=== PATIENT | female | born 1980 | race Two or more races ===

== ENCOUNTER 2019-09-10 09:58 | Emergency (ER) | payer OTHER ==
[2019-09-10 10:07] VITALS: BMI 32.9
[2019-09-10] MEDS ORDERED: ACETAMINOPHEN 1000 MG/100 ML VIAL (NON FORMULARY) IVPB ONE (10:35)
[2019-09-10] MEDS ORDERED: KETOROLAC TROMETHAMINE 30 MG/1 ML VIAL IVPUSH ONE (10:45)
--- NOTE | 2019-09-10 10:46 | PDOC ---
History of Present Illness - General Chief Complaint: Blood Pressure Problem Stated Complaint: HYPERTENSION Time Seen by Provider: 09/10/19 10:33 History Source: Patient Exam Limitations: No Limitations - History of Present Illness Initial Comments: HPI: 39 y/o female presenting to [facility] ER complaining of diffuse posterior headache for the past four days. No nausea/vomiting, change with position, lights, or sounds. Delivered baby via at 23 weeks gestation on 09 Aug 2019 at [facility]. Returned to that hospital on the July for similar headache. Diagnosed with Pre-E. Admitted, treated with magnesium, then discharged on Nifedipine. Taking the antihypertensive as prescribed. Believes this headache feels similar to that headache. Denies h/o migraines. OBGYN Hx: - G 4, T 2, P 0, A 2, L 2 - Two pregnancies complicated by Pre-E - never had a seizure Medical Hx: - HTN Surgical Hx: - Review of Systems: In addition to that documented in the HPI above, the additional ROS was obtained : Constitutional- Denies fevers or chills Head- Denies vision changes ENMT- Denies sore throat CV- Denies chest pain Resp- Denies SOB GI- Denies vomiting or diarrhea - Denies painful urination, hematuria, or increased urinary frequency MSK- Denies recent trauma Skin- Denies new rashes Neuro- Denies new numbness or tingling or weakness Endocrine- Denies polyuria Heme- Denies bleeding or bruising Physical Examination: Vital signs and nursing notes reviewed. Constitutional- Well-developed, well-nourished adult female in no acute distress but mild obvious discomfort. Found semi-fowlers on hospital bed. Answered all questions appropriately and completely. Head- Normocephalic. No obvious external signs of trauma. Pain not reproducible with palpation of occiput or cervical spine. Eyes- PERRL. EOMI. Sclerae white. Conjunctiva moist and not injected. Ears- Hearing grossly intact. Nose- No nasal discharge. Neck- Supple, trachea is midline. No JVD. Cardiovascular / Chest- Regular rate and regular rhythm. No murmur, rubs, clicks , or gallops. Peripheral pulses- radial pulses full. 1+ pretibial edema bilaterally. Respiratory- Breathing unlabored. Equal chest rise and fall. Clear to auscultation bilaterally. No stridor, no wheezing, no rhonchi. Gastrointestinal- Reports discomfort in all four quadrants. No rebound or guarding. No hepatosplenomegaly. No pulsatile masses. LTV scar well appearing; dry, intact. No fluctuance or induration. Neuro- Alert and oriented x4. Moving all four extremities spontaneously. No facial asymmetry. No slurred speech. Skin- Warm, dry, and intact. - No R or L CVA tenderness. Psych- Affect- appropriate. Mood- normal. Speech was non-labored, non- pressured. MDM: 39 y/o female presenting with headache in setting of recent pre-eclampsia diagnosis. Afebrile. Vitals unremarkable for hypotension or tachycardia. Physical exam as described above. Low suspicion for pre-e given normal BP, but will obtain UA and labs to further evaluate as pt believes the symptoms are similar. Low suspicion for ICH but will evaluate given recent . Suspect possible tension headache vs migraine. Ordered Toradol and Reglan for symptom relief. Reviewed laboratory data. No transaminitis. Platelets within normal limits. UA unremarkable for protein. Urine Protein/Cr essentially 0. CTH unremarkable for ICH. 10 Sep 2019 13:06 PM Pt reassessed. Reports the headache feels a little better but has not resolved. 10 Sep 2019 15:24 PM Pt reassessed. Reports she continues to feel better. BP rechecked. Not significantly elevated. Given unremarkable head CT and labs remarkable only for mild proteinuria (but low ratio), will discharge pt home with close OB follow up. Encouraged pt to call OB on Thursday and request urgent appointment. Jas Samayoa M.D., PGY2 Emergency Medicine Resident Past History - Past Medical History Allergies/Adverse Reactions: Allergies Allergy/AdvReac Type Severity Reaction Status Date / Time No Known Allergies Allergy Verified 09/10/19 10:07 Home Medications: Ambulatory Orders Nifedipine ER [Procardia Xl -] 30 mg PO DAILY 09/10/19 COPD: No - Immunization History Immunization Up to Date: No - Psycho Social/Smoking Cessation Hx Smoking History: Never smoked Have you smoked in the past 12 months: No Information on smoking cessation initiated: No Hx Alcohol Use: No Drug/Substance Use Hx: No *Physical Exam - Vital Signs Last Vital Signs Temp Pulse Resp BP Pulse Ox 98.4 F 95 H 18 147/89 100 09/10/19 10:04 09/10/19 10:04 09/10/19 10:04 09/10/19 10:04 09/10/19 10:04 Vital Signs - Vital Signs #1 Time: 15:22 Blood Pressure: 141/84 BP Location: Left Arm Blood Pressure Position: Supine Pulse Rate: 75 Respiratory Rate: 16 O2 Sat by Pulse Oximetry (%): 99 Oxygen Delivery Method: Room Air ED Treatment Course - LABORATORY CBC & Chemistry Diagram: 09/10/19 10:50 09/10/19 10:50 Discharge - Discharge Information Problems reviewed: Yes Clinical Impression/Diagnosis: examination following delivery Headache Qualifiers: Headache type: unspecified Headache chronicity pattern: acute headache Intractability: not intractable Qualified Code(s): R51 - Headache Condition: Improved Disposition: HOME - Admission No - Follow up/Referral Referrals: Melita Beyer MD [Primary Care Provider] - Jose Miguel Harden MD [Staff Physician] - - Patient Discharge Instructions Patient Printed Discharge Instructions: DI for Headache Additional Instructions: You were seen today for a headache. Your blood pressure was mildly elevated. Your labs showed a small amount of protein in your urine. Your head CT was normal. I discussed your symptoms and results with the OBGYN agronomy advisor, Dr. Harden, who also felt this was not likely to be pre-eclampsia. You can take over the counter Tylenol or Advil as needed for pain. Take as directed on the package insert. Do not exceed the recommended dosage. If your headache gets worse and does not go away, take your blood pressure at home, then re-measure it four hours later. If the BP is above 150/90 both times , then go back to the hospital. You can return to [place] but it might be better for you to go to [facility] where you delivered. Follow up with your OBGYN in the next 2-3 days. You will need to call to make an appointment. A copy of todays results are attached to this packet. Take it to the appointment so your doctor can review them. Go to the nearest emergency department if your condition worsens or you feel like you need additional emergency evaluation. Print Language: GREEK - Post Discharge Activity Work/Back to School Note: Back to Work
[2019-09-10] MEDS ORDERED: KETOROLAC TROMETHAMINE 30 MG/1 ML VIAL ONE (11:03)
[2019-09-10 11:11] LABS: PH,URINE 6.5 (5.0-8.0); URINE APPEARANCE CLEAR; URINE BILIRUBIN NEGATIVE (NEGATIVE); URINE COLOR YELLOW; URINE GLUCOSE (UA) NEGATIVE (NEGATIVE); URINE KETONE NEGATIVE (NEGATIVE); URINE LEUK ESTERASE NEGATIVE (NEGATIVE); URINE NITRITE NEGATIVE (NEGATIVE); URINE PROTEIN NEGATIVE (NEGATIVE)
[2019-09-10 11:14] LABS: BASO % 0.6 % (0-2.0); HEMATOCRIT 40.1 % (32.4-45.2); HEMOGLOBIN 13.4 GM/dL (10.7-15.3); LYMPH % 34.7 % (8-40); MCH 28.2 pg (25.7-33.7); MCHC 33.3 g/dl (32.0-36.0); MEAN CELL VOLUME 84.6 fl (80-96); MEAN PLT VOLUME 8.7 fl (7.5-11.1); MONO % 6.3 % (3.8-10.2); NEUT % 57.4 % (42.8-82.8); PLATELET COUNT 207 K/MM3 (134-434); RBC 4.74 M/mm3 (3.60-5.2); RDW 13.8 % (11.6-15.6); WHITE BLOOD COUNT 5.1 K/mm3 (4.0-10.0)
--- NOTE | 2019-09-10 11:55 | PDOC ---
Documentation entered by Kirby Strong SCRIBE, acting as scribe for Marcella Rey MD. Marcella Rey MD: This documentation has been prepared by the Tae calhoun Nirvannie, SCRIBE, under my direction and personally reviewed by me in its entirety. I confirm that the documentation accurately reflects all work, treatment, procedures, and medical decision making performed by me. Attending Attestation - Resident Resident Name: Jas Samayoa - ED Attending Attestation I have performed the following: I have examined & evaluated the patient, The case was reviewed & discussed with the resident, I agree w/resident's findings & plan, Exceptions are as noted - HPI HPI: 09/10/19 11:35 The patient is a 39 year old female, with a significant past medical history of HTN, who presents to the emergency department with 4 days of a headache. Patient describes her headache as localized to the posterior head. She notes a similar symptoms last month (08/15) shortly after giving (08/09) at which time she was admitted, treated with magnesium, and prescribed Nifedipine. Patient notes her symptoms are similar to the headache for which she was admitted, prompting her arrival to the ED. She denies any focal weakness, change in strength/sensation, lightheadedness, or dizziness. She denies any visionary changes, photophobia, or phonophobia. She denies recent chest pain or shortness of breath. Allergies: NKDA Primary Care Physician: Dr. Beyer - Physicial Exam PE: GENERAL: Awake, alert, and fully oriented, in no acute distress HEAD: No signs of trauma EYES: PERRLA, EOMI, sclera anicteric, conjunctiva clear ENT: Auricles normal inspection, hearing grossly normal, nares patent, oropharynx clear without exudates. Moist mucosa NECK: Normal ROM, supple, no lymphadenopathy, JVD, or masses LUNGS: Breath sounds equal, clear to auscultation bilaterally. No wheezes, and no crackles HEART: Regular rate and rhythm, normal S1 and S2, no murmurs, rubs or gallops ABDOMEN: Soft, nontender, normoactive bowel sounds. No guarding, no rebound. No masses EXTREMITIES: Normal range of motion, 1+ pitting to ankles B/L. No clubbing or cyanosis. No cords, erythema, or tenderness NEUROLOGICAL: Cranial nerves II through XII grossly intact. Normal speech, normal gait. Motor and sensation intact SKIN: Warm, dry, normal turgor, no rashes or lesions noted. - Medical Decision Making Pt with history of preeclampsia, prior admission for mag shortly after delivery. Presents with posterior headache, mild swelling to BLE. Will obtain CBC, CMP, mag level, and UA.
[2019-09-10 12:34] LABS: ALBUMIN 3.7 g/dl (3.4-5.0); BILIRUBIN,TOTAL 0.3 mg/dL (0.2-1); BLOOD UREA NITROGEN 11.3 mg/dL (7-18); CALCIUM 9.3 mg/dL (8.5-10.1); CREATININE 0.7 mg/dL (0.55-1.3); MAGNESIUM 2.3 mg/dL (1.8-2.4); POTASSIUM 3.6 mmol/L (3.5-5.1); TOT PROT 7.4 g/dl (6.4-8.2)
[2019-09-10] MEDS ORDERED: METOCLOPRAMIDE HCL INJECTION 10 MG/2 ML VIAL IVPUSH ONE (13:10)
[2019-09-10] MEDS ORDERED: METOCLOPRAMIDE HCL INJECTION 10 MG/2 ML VIAL ONE (13:28)
[2019-09-10 15:49] VITALS: TEMP 98
--- NOTE | 2019-09-11 12:37 | EKG ---
Test Reason : Blood Pressure : / mmHG Vent. Rate : 069 BPM Atrial Rate : 069 BPM P-R Int : 148 ms QRS Dur : 090 ms QT Int : 402 ms P-R-T Axes : 051 004 -09 degrees QTc Int : 430 ms NORMAL SINUS RHYTHM MINIMAL VOLTAGE CRITERIA FOR LVH, MAY BE NORMAL VARIANT NONSPECIFIC T WAVE ABNORMALITY ABNORMAL ECG NO PREVIOUS ECGS AVAILABLE Confirmed by ARTHUR KIM MD ([id number]) on 09/11/2019 12:37:05 PM Referred By: Confirmed By:ARTHUR KIM MD
[2019-10-16 20:33] VITALS: BP 141/84; PULSE 75
== END 2019-09-10 15:40 | disposition home or self-care (01) ==
LOC: JER 09:58
PROC: 3E033GC Introduction of Other Therapeutic Substance into Peripheral Vein, Percutaneous Approach (ICD-10-PCS; principal; 2019-09-10)
PROC: 3E0333Z Introduction of Anti-inflammatory into Peripheral Vein, Percutaneous Approach (ICD-10-PCS; 2019-09-10)
DX: O90.89 Other complications of the puerperium, not elsewhere classified (principal); R51 Headache
CPT/HCPCS: 36415; 70450-TC; 80053; 81003; 82570; 83735; 84156; 85025; 93005; 93010; 96374; 96375; 99283-25

== ENCOUNTER 2019-10-05 19:43 | Emergency (ER) | payer OTHER ==
[2019-10-05 19:55] VITALS: TEMP 98; BMI 33.4
--- NOTE | 2019-10-05 21:40 | PDOC ---
History of Present Illness - General Chief Complaint: Chest Pain Stated Complaint: CHEST PAIN Time Seen by Provider: 10/05/19 21:39 - History of Present Illness Initial Comments: HPI: 39yo F with PMH of HTN, pre-eclampsie presenting with chest pain. The pain started around 3pm and is described as "pressure," located midsternally, and rated 5/10. It does not radiate and is not associated with nausea, vomiting, or diaphoresis. Patient has felt like this once before, while she was acutely pre- eclamptic. She is unsure if the pain worsens with exertion. No family history of heart problems. She is a lifetime non-smoker. Has had problems with high blood pressure levels since she gave and has been trialed on different medications (first nifedipine 30mg, then labetolol 100mg, and now chlorthalidone 25mg). No hemoptysis, no recent surgical history, no recent immobilization, no hormone use, no history of DVT or PE. Denies fever of chills. ROS: Constitutional: no fever, no chills HEENT: no throat pain, no dysphagia Cardiovascular: +chest pain, no palpitations Respiratory: no cough, no shortness of breath Gastrointestinal: no abdominal pain, no nausea Genitourinary: no dysuria, no hematuria Musculoskeletal: no myalgia, no arthralgia Skin: no rash, no itching Neurologic: no headache, no weakness Psych: no agitation, no anxiety PE: General: Awake, alert, and fully oriented, in no acute distress Head: No signs of trauma Eyes: EOMI, sclera anicteric ENT: Moist mucus membranes Neck: Normal ROM, supple Lungs: Lungs clear, Normal breath sounds Cardio: Regular rhythm, S1 and S2 present Abdomen: Soft, nontender. No guarding, no rebound, no masses Extremities: Normal range of motion, Distal pulses present SKIN: Warm, Dry, normal turgor Neurologic: Cranial nerves II through XII grossly intact. Normal speech ED Course/MDM: DDX including but not limited to ACS, PE, PNA, anemia, metabolic derangement Labs, EKG, CXR Nifedipine for BP control EKG: rate 70, Qtc 440, NSR, twi in III and V3 10/05/19 21:40 CBC WBC 6.8 K/mm3 (4.0-10.0) 10/05/19 22:50 RBC 5.07 M/mm3 (3.60-5.2) 10/05/19 22:50 Hgb 14.4 GM/dL (10.7-15.3) 10/05/19 22:50 Hct 42.6 % (32.4-45.2) 10/05/19 22:50 MCV 84.2 fl (80-96) 10/05/19 22:50 MCH 28.5 pg (25.7-33.7) 10/05/19 22:50 MCHC 33.8 g/dl (32.0-36.0) 10/05/19 22:50 RDW 13.9 % (11.6-15.6) 10/05/19 22:50 Plt Count 243 K/MM3 (134-434) 10/05/19 22:50 MPV 8.8 fl (7.5-11.1) 10/05/19 22:50 Absolute Neuts (auto) 3.1 K/mm3 (1.5-8.0) 10/05/19 22:50 Neutrophils % 45.9 % (42.8-82.8) D 10/05/19 22:50 Lymphocytes % 45.8 % (8-40) H D 10/05/19 22:50 Monocytes % 6.6 % (3.8-10.2) 10/05/19 22:50 Eosinophils % 1.2 % (0-4.5) 10/05/19 22:50 Basophils % 0.5 % (0-2.0) 10/05/19 22:50 Nucleated RBC % 0 % (0-0) 10/05/19 22:50 No leukocytosis CMP Sodium 140 mmol/L (136-145) 10/05/19 22:50 Potassium 3.4 mmol/L (3.5-5.1) L 10/05/19 22:50 Chloride 104 mmol/L (98-107) 10/05/19 22:50 Carbon Dioxide 31 mmol/L (21-32) 10/05/19 22:50 Anion Gap 5 MMOL/L (8-16) L 10/05/19 22:50 BUN 14.2 mg/dL (7-18) 10/05/19 22:50 Creatinine 0.9 mg/dL (0.55-1.3) 10/05/19 22:50 Est GFR (CKD-EPI)AfAm 92.70 10/05/19 22:50 Est GFR (CKD-EPI)NonAf 79.98 10/05/19 22:50 Random Glucose 93 mg/dL (74-106) 10/05/19 22:50 Calcium 9.2 mg/dL (8.5-10.1) 10/05/19 22:50 Total Bilirubin 0.3 mg/dL (0.2-1) 10/05/19 22:50 AST 16 U/L (15-37) 10/05/19 22:50 ALT 26 U/L (13-61) 10/05/19 22:50 Alkaline Phosphatase 107 U/L (45-117) 10/05/19 22:50 Troponin I < 0.02 ng/ml (0.00-0.05) 10/05/19 22:50 Total Protein 8.1 g/dl (6.4-8.2) 10/05/19 22:50 Albumin 4.0 g/dl (3.4-5.0) 10/05/19 22:50 Electrolytes unremarkable Normal Cr No transaminitis First Tpn undetectable Second Tpn undetectable Patient with HEART score of 1, 0.9-1.7% risk of adverse cardiac event. In the HEART Score study, these patients were discharged (0.99% in the retrospective study, 1.7% in the prospective study) I have low suspicion for an acute cardiac process at this time CXR as read by radiology: " EXAM#: TYPE/EXAM: RESULT: [id number] RAD/CHEST PA LAT Chest: Chest pain There are no prior studies for comparison. 2 views the chest reveal clear well aerated lungs, normal mediastinum and sharp angles. The bones and soft tissues are intact. Impression : No acute chest pathology. Reported By: Kanu Carpenter MD 10/06/19 0704 " Patient to follow up with policeman at already scheduled appointment BP improved after nifedipine Return precautions Stable for discharge Past History - Past Medical History Allergies/Adverse Reactions: Allergies Allergy/AdvReac Type Severity Reaction Status Date / Time No Known Allergies Allergy Verified 09/10/19 10:07 Home Medications: Ambulatory Orders Nifedipine ER [Procardia Xl -] 30 mg PO DAILY 09/10/19 COPD: No HTN: Yes - Immunization History Immunization Up to Date: No - Psycho Social/Smoking Cessation Hx Smoking History: Never smoked Have you smoked in the past 12 months: No Hx Alcohol Use: No Drug/Substance Use Hx: No *Physical Exam - Vital Signs Last Vital Signs Temp Pulse Resp BP Pulse Ox 98 F 90 20 167/102 H 100 10/05/19 19:51 10/05/19 19:51 10/05/19 19:51 10/05/19 19:51 10/05/19 19:51 ED Treatment Course - LABORATORY CBC & Chemistry Diagram: 10/05/19 22:50 10/05/19 22:50 Discharge - Discharge Information Problems reviewed: Yes Clinical Impression/Diagnosis: Chest pain Qualifiers: Chest pain type: unspecified Qualified Code(s): R07.9 - Chest pain, unspecified Condition: Stable Disposition: HOME - Follow up/Referral Referrals: ON STAFF,NOT [Primary Care Provider] - - Patient Discharge Instructions Patient Printed Discharge Instructions: DI for Chest Pain Additional Instructions: You came into the emergency department for chest pain. We performed blood work, an EKG, and an Xray which were within normal limits. Follow-up with your policeman at your already scheduled appointment to discuss this ED visit and to further evaluate your symptoms. Call and make an appointment at the number provided. Your workup is not complete until you do so. Call for emergency medicine services or go to the emergency room right away if you have symptoms of a heart attack, including: Chest pain, which may feel like a crushing weight A sense of fullness, squeezing, or pressure in the chest Rapid, irregular heartbeat Pain, tingling or numbness in the left shoulder and arm, the neck or jaw, or the right arm Sweating Nausea or vomiting Lightheadedness, weakness, or fainting Shortness of breath If you think you have an emergency, call for medical help right away. - Post Discharge Activity Work/Back to School Note: Back to Work
[2019-10-05 22:55] LABS: BASO % 0.5 % (0-2.0); EOS % 1.2 % (0-4.5); HEMATOCRIT 42.6 % (32.4-45.2); HEMOGLOBIN 14.4 GM/dL (10.7-15.3); LYMPH % 45.8 % (8-40); MCH 28.5 pg (25.7-33.7); MCHC 33.8 g/dl (32.0-36.0); MEAN CELL VOLUME 84.2 fl (80-96); MEAN PLT VOLUME 8.8 fl (7.5-11.1); MONO % 6.6 % (3.8-10.2); NEUT % 45.9 % (42.8-82.8); PLATELET COUNT 243 K/MM3 (134-434); RBC 5.07 M/mm3 (3.60-5.2); RDW 13.9 % (11.6-15.6); WHITE BLOOD COUNT 6.8 K/mm3 (4.0-10.0)
[2019-10-05 23:21] LABS: BILIRUBIN,TOTAL 0.3 mg/dL (0.2-1); BLOOD UREA NITROGEN 14.2 mg/dL (7-18); CALCIUM 9.2 mg/dL (8.5-10.1); CREATININE 0.9 mg/dL (0.55-1.3); POTASSIUM 3.4 mmol/L (3.5-5.1); TOT PROT 8.1 g/dl (6.4-8.2)
--- NOTE | 2019-10-05 23:30 | PDOC ---
Documentation entered by Mert Starr SCRIBE, acting as scribe for Giovanni Mcclellan MD. Giovanni Mcclellan MD: This documentation has been prepared by the Ro calhoun Xhesika, SCRIBE, under my direction and personally reviewed by me in its entirety. I confirm that the documentation accurately reflects all work, treatment, procedures, and medical decision making performed by me. Attending Attestation - Resident Resident Name: ShantelleLeniMarcella - ED Attending Attestation I have performed the following: I have examined & evaluated the patient, The case was reviewed & discussed with the resident, I agree w/resident's findings & plan, Exceptions are as noted - HPI HPI: 10/05/19 22:52 The patient is a 39 year old female, with a significant past medical history of HTN and pre-eclampsie who presents to the emergency department with chest pain described as pressure, located midsternally since 3pm. The patient denies shortness of breath, headache and dizziness. Denies fever, chills, cough, nausea, vomiting, diarrhea and constipation. Denies dysuria, frequency, urgency and hematuria. Allergies: NKDA Primary Care Physician: Dr. Beyer - Physicial Exam PE: 10/05/19 23:29 EXAMINATION CONSTITUTIONAL: Well-appearing; well-nourished; in no apparent distress HEAD: Normocephalic; atraumatic EYES: PERRL; EOM intact ENMT: External appears normal; normal oropharynx NECK: Supple; non-tender; no cervical lymphadenopathy CARD: Normal S1, S2; no murmurs, rubs, or gallops RESP: Normal chest excursion with respiration; breath sounds clear and equal bilaterally; no wheezes, rhonchi, or rales ABD: Soft, non-distended; non-tender; no palpable organomegaly, no palpable hernias EXT: Normal ROM in all four extremities; non-tender to palpation; distal pulses intact SKIN: Warm, dry, no rash NEURO: No focal neurological deficiencies. - Medical Decision Making 10/05/19 23:29 39-year-old female with history of hypertension preeclampsia presents with atraumatic chest pressure without any other associated symptomatology. On arrival, patient is noted to be in no distress, hypertensive. EKG shows no evidence of acute ischemia or dysrhythmia. Patient's heart score is noted to be 1. Will administer antihypertensive p.o. meds in the ED. Will obtain serial cardiac enzymes and if negative, will discharge with outpatient follow- up. Patient's negative for PE by the PERC rule.
[2019-10-05] MEDS ORDERED: NIFEdipine 10 MG CAPSULE (FP) PO ONE (23:32)
[2019-10-05] MEDS ORDERED: NIFEdipine E.R. 30 MG TABLET ONE (23:44)
[2019-10-05 23:48] VITALS: BP 139/95; PULSE 74
--- NOTE | 2019-10-06 14:20 | EKG ---
Test Reason : Blood Pressure : / mmHG Vent. Rate : 070 BPM Atrial Rate : 070 BPM P-R Int : 148 ms QRS Dur : 094 ms QT Int : 408 ms P-R-T Axes : 035 034 -13 degrees QTc Int : 440 ms NORMAL SINUS RHYTHM NONSPECIFIC T WAVE ABNORMALITY ABNORMAL ECG WHEN COMPARED WITH ECG OF 10-SEP-2019 11:37, NO SIGNIFICANT CHANGE WAS FOUND Confirmed by NADIA MENDEZ MD ([id number]) on 10/06/2019 2:20:15 PM Referred By: Confirmed By:NADIA MENDEZ MD
== END 2019-10-06 03:34 | disposition home or self-care (01) ==
LOC: JER 19:43
DX: R07.9 Chest pain, unspecified (principal); I10 Essential (primary) hypertension
CPT/HCPCS: 36415; 71046-TC-FY; 80053; 84484; 84703; 85025; 93005; 93010; 99285-25